=== PATIENT | male | born 1965 | race Caucasian/White ===

== ENCOUNTER 2023-02-12 12:29 | Emergency (ER) | payer SELFPAY ==
[~2023-02-12] VITALS: Ht 165 cm; Wt 60.0 kg
[~2023-02-12 12:29] MED LIST: ACET-2267 PO; IBUP-2185 PO; NAPR220T66 PO
[2023-02-12] MEDS ORDERED: NS IV 1000 ML 1,000 ML IV STA (13:04)
--- NOTE | 2023-02-12 13:08 | ED General ---
General Chief Complaint: Dizziness/Syncope Stated Complaint: DIZZINESS | NAUSEA Nursing Triage Note: DIZZINESS/NAUSEA STARTING LAST NIGHT. Source of Information: Patient Exam Limitations: No Limitations History of Present Illness Date Seen by Provider: Feb 12, 2023 Time Seen by Provider: 13:06 Initial Comments Patient is a 57-year-old male from the [facility] and speaks only [place] Citizen presents to ED with son at bedside who is serving as time study technician for right-sided head pain, dizziness, vomitting since last night. Patient states he was sitting at home. Fairly acute onset of dizziness and right-sided head pain. Head pain 7 out of 10. Started having severe dizziness felt like the room was spinning. Dizziness is positional especially with [id number] head movements. Patient states he has vomited 3 times since last night. The vomiting occurs with right and left-sided head movement. States he has some mild left ear ringing but denies of any hearing loss. Reports some sinus pressure. Denies history of similar symptoms in the past. Denies any trauma. He reports bilateral blurry vision with the dizziness. That improves when he keeps his head still. Denies chest pain, cough, shortness of breath, runny nose, sore throat, neck pain, diarrhea, fever. No recent travels. Patient took Tylenol at home with some improvement. Patient denies chest pain, shortness of breath, cough, fever, neck pain, injury, unilateral muscle weakness or sensory changes, facial droop, history of stroke. Allergies and Home Medications Allergies Coded Allergies: No Known Drug Allergies (Unverified , 09/10/21) Patient Home Medication List Home Medication List Reviewed: Yes Acetaminophen (Tylenol Extra Strength) 500 Mg Tablet, 500-1,000 MG PO Q8H PRN for PAIN-MILD (1-4), (Reported) Entered as Reported by: HAL MUNGUIA on 09/10/21 1344 Amoxicillin/Potassium Clav (Amox Tr-K Clv 875-125 mg Tab) 875 Mg-125 Mg Tablet, 1 EACH PO BID Prescribed by: CHYNA WYMAN on 02/12/23 1548 Ibuprofen (Ibuprofen) 200 Mg Capsule, 400-600 MG PO Q8H PRN for PAIN-MILD (1-4), (Reported) Entered as Reported by: HAL MUNGUIA on 09/10/21 1344 Meclizine HCl (Meclizine HCl) 25 Mg Tablet, 25 MG PO QID PRN for DIZZINESS Prescribed by: CHYNA WYMAN on 02/12/23 1546 Naproxen Sodium (Aleve) 220 Mg Tablet, 220 MG PO Q8H PRN for PAIN-MILD (1-4), (Reported) Entered as Reported by: HAL MUNGUIA on 09/10/21 1344 Promethazine HCl (Promethazine Tablet) 25 Mg Tablet, 25 MG PO Q6H PRN for NAUSEA/VOMITING Prescribed by: CHYNA WYMAN on 02/12/23 1546 Review of Systems Review of Systems Constitutional: No chills, No diaphoresis, No fever, No malaise, No weakness EENTM: blurred vision; No ear discharge, No hearing loss, No vision loss, No dental problems Respiratory: No cough, No dyspnea on exertion Cardiovascular: No chest pain, No edema Gastrointestinal: No abdominal pain, No diarrhea; nausea, vomiting Genitourinary: No decreased output, No discharge Musculoskeletal: No back pain, No joint pain Skin: No change in color, No change in hair/nails All Other Systems Reviewed Negative Unless Noted: Yes Past Fvzygrd-Cwopmh-Huopcc Hx Patient Social History Tobacco Use?: Yes Smoking Status: Former Smoker Substance use?: No Alcohol Use?: No Physical Exam Vital Signs Vital Signs - First Documented 02/12/23 12:40 Temp 36.3 Pulse 51 Resp 16 B/P (MAP) 168/89 (115) Pulse Ox 95 O2 Delivery Room Air Capillary Refill : Less Than 3 Seconds Height, Weight, BMI Height: '" Weight: lbs. oz. kg; 22.00 BMI Method: General Appearance: No Apparent Distress, WD/WN Eyes: Bilateral Eye PERRL, Bilateral Eye EOMI, Bilateral Eye Other (Rotational nystagmus with left-sided head movement.) HEENT: PERRL/EOMI, TMs Normal, Normal ENT Inspection, Pharynx Normal Neck: Full Range of Motion, Normal Inspection, Non Tender, Supple Respiratory: Chest Non Tender, Lungs Clear, Normal Breath Sounds, No Accessory Muscle Use, No Respiratory Distress Cardiovascular: Regular Rate, Rhythm, No Edema, No Gallop, No JVD, No Murmur Gastrointestinal: Normal Bowel Sounds, No Organomegaly, No Pulsatile Mass, Non Tender Extremity: Normal Range of Motion Neurologic/Psychiatric: Alert, Oriented x3, No Motor/Sensory Deficits, Normal Mood/Affect, finance clerk II-XII Norm as Tested Skin: Normal Color, Warm/Dry Progress/Results/Core Measures Suspected Sepsis SIRS Temperature: Pulse: 51 Respiratory Rate: 16 Laboratory Tests 02/12/23 13:15: White Blood Count 6.0 Blood Pressure 168 /89 Mean: 115 Laboratory Tests 02/12/23 13:15: Creatinine 1.15, Platelet Count 223, Total Bilirubin 0.4 Results/Orders Lab Results Laboratory Tests Test 02/12/23 13:15 Range/Units White Blood Count 6.0 4.3-11.0 10^3/uL Red Blood Count 6.03 H 4.30-5.52 10^6/uL Hemoglobin 16.9 13.3-17.7 g/dL Hematocrit 51 40-54 % Mean Corpuscular Volume 84 80-99 fL Mean Corpuscular Hemoglobin 28 25-34 pg Mean Corpuscular Hemoglobin Concent 34 32-36 g/dL Red Cell Distribution Width 13.3 10.0-14.5 % Platelet Count 223 130-400 10^3/uL Mean Platelet Volume 8.8 L 9.0-12.2 fL Immature Granulocyte % (Auto) 0 % Neutrophils (%) (Auto) 72 42-75 % Lymphocytes (%) (Auto) 20 12-44 % Monocytes (%) (Auto) 5 0-12 % Eosinophils (%) (Auto) 2 0-10 % Basophils (%) (Auto) 1 0-10 % Neutrophils # (Auto) 4.4 1.8-7.8 10^3/uL Lymphocytes # (Auto) 1.2 1.0-4.0 10^3/uL Monocytes # (Auto) 0.3 0.0-1.0 10^3/uL Eosinophils # (Auto) 0.1 0.0-0.3 10^3/uL Basophils # (Auto) 0.1 0.0-0.1 10^3/uL Immature Granulocyte # (Auto) 0.0 0.0-0.1 10^3/uL Sodium Level 138 135-145 MMOL/L Potassium Level 3.9 3.6-5.0 MMOL/L Chloride Level 108 H 98-107 MMOL/L Carbon Dioxide Level 22 21-32 MMOL/L Anion Gap 8 5-14 MMOL/L Blood Urea Nitrogen 10 7-18 MG/DL Creatinine 1.15 0.60-1.30 MG/DL Estimat Glomerular Filtration Rate 73 BUN/Creatinine Ratio 9 Glucose Level 122 H 70-105 MG/DL Calcium Level 9.0 8.5-10.1 MG/DL Corrected Calcium 9.0 8.5-10.1 MG/DL Total Bilirubin 0.4 0.1-1.0 MG/DL Aspartate Amino Transf (AST/SGOT) 18 5-34 U/L Alanine Aminotransferase (ALT/SGPT) 18 0-55 U/L Alkaline Phosphatase 36 L 40-136 U/L Total Protein 7.4 6.4-8.2 GM/DL Albumin 4.0 3.2-4.5 GM/DL My Orders Orders - MERLY JHAVERI Cbc With Automated Diff (02/12/23 13:04) Comprehensive Metabolic Panel (02/12/23 13:04) Ondansetron Injection (Zofran Injectio (02/12/23 13:15) Meclizine Tablet (Antivert Tablet) (02/12/23 13:15) Ns Iv 1000 Ml (Sodium Chloride 0.9%) (02/12/23 13:04) Ct Head Wo (02/12/23 13:04) Diazepam Tablet (Valium Tablet) (02/12/23 14:18) Promethazine Injection (Phenergan Injec (02/12/23 15:45) Medications Given in ED Vital Signs/I&O 02/12/23 02/12/23 12:40 16:30 Temp 36.3 Pulse 51 62 Resp 16 16 B/P (MAP) 168/89 (115) 152/90 Pulse Ox 95 96 O2 Delivery Room Air Capillary Refill : Less Than 3 Seconds Blood Pressure Mean: 115 Departure Communication (PCP) Reviewed previous ER visits, H&P, lab testing. History of coronary artery disease. Cardiac cath in 2020. Patient has no chest pain, shortness of breath or cough. Fairly acute onset last night of dizziness with this right-sided head pain. Dizziness is positional. Reports some mild ear ringing on the left side without hearing loss. Blurry vision with the dizziness feels like he is on a boat. Gets relief when he keeps his head still. No history of similar symptoms. Denies chest pain, shortness of breath, cough, abdominal pain, vomiting or diarrhea. attempted Surry-Hallpike's. Did have some rotational nystagmus with left sided head movement with latency. He did feel nauseous. Attempted Sherman's maneuver with some mild improvement. Patient was given meclizine, Zofran and started on a liter of fluid. Due to no previous history of dizziness CT scan of the head was ordered for any other acute cause such as stroke versus brain lesion. CT scan was unremarkable but did show concern for sinus disease. Does have some maxillary sinus tenderness and fullness. Reports some congestion. Left TM with mild erythema. Potentially underlying sinus infection. CBC and CMP was ordered secondary to the dizziness to rule out other potential etiologies like anemia, electrolyte abnormality. CBC and CMP grossly unremarkable. Patient continued to feel dizzy with head movement. Patient was given Valium and Phenergan with some improvement. Differential diagnosis of BPPV, labyrinthitis, vestibular neuritis Mnire's disease. Patient was able to ambulate here without assistance. No evidence suggesting vertebral artery dissection. Headache improved on its own. Denies worst headache of his life. No evidence of rash to the face. Does not appear to be strokelike symptoms without any focal neural deficits or neurological red flag findings. Provided ENT outpatient follow-up as patient may require PT for the vertigo. Discharge with meclizine and Phenergan as the Phenergan seemed to improve. Will discharge with Augmentin secondary to potential sinus infection and ear infection. Discussed with patient and family that this could end up taking a few weeks or even longer. If any worsening symptoms such as severe head pain, focal neural deficits to return back to ED. vertigo appears to be BPPV or early labyrinthitis. Impression Primary Impression: Vertigo Disposition: HOME, SELF-CARE Condition: Stable Departure-Patient Inst. Decision time for Depature: 15:44 Referrals: NARENDRA MARCANO MD NO,LOCAL PHYSICIAN (PCP) Primary Care Physician Patient Instructions: Vertigo (a Type of Dizziness) (DC) Add. Discharge Instructions: Recommend follow-up with Dr. Marcano ENT for further evaluation. Take antibiotics as prescribed. Avoid excessive head movement. This may take 1 to 2 weeks to improve and potentially longer. Recommend avoiding driving All discharge instructions reviewed with patient and/or family. Voiced understanding. Scripts Amoxicillin/Potassium Clav (Amox Tr-K Clv 875-125 mg Tab) 875 Mg-125 Mg Tablet 1 EACH PO BID for 10 Days, #20 TAB Prov: MERLY JHAVERI 02/12/23 Promethazine HCl (Promethazine Tablet) 25 Mg Tablet 25 MG PO Q6H PRN for NAUSEA/VOMITING, #14 TAB Prov: MERLY JHAVERI 02/12/23 Meclizine HCl (Meclizine HCl) 25 Mg Tablet 25 MG PO QID PRN for DIZZINESS, #30 TAB Prov: MERLY JHAVERI 02/12/23 MERLY JHAVERI Feb 12, 2023 13:08
[2023-02-12] MEDS ORDERED: ONDANSETRON 4 MG/2 ML (SDV) Z0FRAN IVP ONE (13:15)
[2023-02-12] MEDS ORDERED: MECLIZINE 25 MG (ANTIVERT) TAB PO ONE (13:15)
[2023-02-12 13:25] LABS: BASOPHILS # (AUTO) 0.1 10^3/uL (0.0-0.1); BASOPHILS % (AUTO) 1 % (0-10); EOSINOPHILS # (AUTO) 0.1 10^3/uL (0.0-0.3); EOSINOPHILS % (AUTO) 2 % (0-10); HEMATOCRIT 51 % (40-54); HEMOGLOBIN 16.9 g/dL (13.3-17.7); LYMPHOCYTES # (AUTO) 1.2 10^3/uL (1.0-4.0); LYMPHOCYTES % (AUTO) 20 % (12-44); MEAN CORPUSCULAR HEMOGLOBIN 28 pg (25-34); MEAN CORPUSCULAR HGB CONC 34 g/dL (32-36); MEAN CORPUSCULAR VOLUME 84 fL (80-99); MEAN PLATELET VOLUME 8.8 fL (9.0-12.2); MONOCYTES # (AUTO) 0.3 10^3/uL (0.0-1.0); MONOCYTES % (AUTO) 5 % (0-12); NEUTROPHILS # (AUTO) 4.4 10^3/uL (1.8-7.8); NEUTROPHILS % (AUTO) 72 % (42-75); PLATELET COUNT 223 10^3/uL (130-400)
--- NOTE | 2023-02-12 13:32 | Diagnostic Imaging Report ---
INDICATION: right sided head pain, vertigo TECHNIQUE: Routine non contrast-enhanced axial images were obtained from the skull base to the vertex. Auto Exposure Controls were utilized during the CT exam to meet ALARA standards for radiation dose reduction COMPARISON: None. FINDINGS: The ventricles and cortical sulci are diffusely prominent, compatible with age-related volume loss. There is no midline shift or mass-effect. No acute intra-axial hemorrhage is seen. There are no abnormal areas of increased or decreased density to suggest acute hemorrhage or edema. No extra-axial masses or collections are present. The bony calvarium is intact. The visualized paranasal sinuses show mild scattered mucosal thickening with small air-fluid levels in bilateral maxillary sinuses. The mastoid air cells are partially opacified, bilaterally. IMPRESSION: 1. No acute intracranial abnormality. No CT evidence of mass, acute infarct or intracranial hemorrhage. 2. Paranasal and mastoid air cell disease. Dictated by: Dictated on workstation # [id number]
[2023-02-12 13:36] LABS: POTASSIUM 3.9 MMOL/L (3.6-5.0)
[2023-02-12 13:39] LABS: TOTAL PROTEIN 7.4 GM/DL (6.4-8.2)
[2023-02-12 13:40] LABS: BILIRUBIN,TOTAL 0.4 MG/DL (0.1-1.0)
[2023-02-12 13:42] LABS: CREATININE SERUM 1.15 MG/DL (0.60-1.30)
[2023-02-12] MEDS ORDERED: PROMETHAZINE INJ 25 MG/ML (PHENERGAN) AMP IVP ONE (15:45)
[2023-02-12] MEDS ORDERED: PROM25TA14 PO (15:46)
[2023-02-12] MEDS ORDERED: MECL-149 PO (15:46)
[2023-02-12] MEDS ORDERED: AMOX1TAB12 PO (15:48)
[2023-02-12 16:30] VITALS: BP 152/90
== END 2023-02-12 16:30 | disposition home or self-care (01) ==
LOC: EDUNIT# 12:29 → ER 12:32
DX: R42 Dizziness and giddiness (principal); R51.9 Headache, unspecified; J34.89 Other specified disorders of nose and nasal sinuses; H53.8 Other visual disturbances; H94 Other disorders of ear in diseases classified elsewhere; Z87.891 Personal history of nicotine dependence; Z28.310 Unvaccinated for COVID-19
CPT/HCPCS: 36415; 70450; 80053; 85025; 96361; 96374; 96375